=== PATIENT | female | born 1955 | race Caucasian/White ===

== ENCOUNTER 2020-04-01 10:24 | Outpatient (CLI) | payer MEDICARE ==
--- NOTE | 2020-04-01 11:13 | RAD ---
TWO VIEW CHEST: HISTORY: Sarcoidosis. COMPARISON: No comparison. FINDINGS: Lung [place] appear clear of infiltrate. No significant interstitial thickening. No vascular congest ion or effusion. Heart size within normal range. Osseous structures unremarkable. IMPRESSION: No acute process. POS: AH
== END 2020-04-01 10:25 | disposition home or self-care (01) ==
LOC: RAD-FRANK 10:24
PROVIDERS: ATTEND Nurse Practitioner Family
DX: D86.9 Sarcoidosis, unspecified (principal)
CPT/HCPCS: 71046

== ENCOUNTER 2022-03-08 13:45 | Outpatient (CLI) | payer MEDICARE | END 2022-03-08 13:46 | disposition home or self-care (01) | LOC: RAD-FRANK 13:45 | PROVIDERS: ATTEND Nurse Practitioner Family | DX: M25.572 Pain in left ankle and joints of left foot (principal) ==